=== PATIENT | female | born 1970 | race Caucasian/White ===

== ENCOUNTER 2023-09-06 16:13 | Inpatient (IN) | payer MEDICAID ==
[~2023-09-06] VITALS: Ht 157.5 cm; Wt 68.0 kg
[2023-09-06 16:28] VITALS: BP_SYST 142; PULSE 98; RESP 22; TEMP 98.3; O2SAT 98
[2023-09-06] MEDS ORDERED: ASPIRIN 81 MG TAB.CHEW PO ONE (17:15)
[2023-09-06 17:37] LABS: BASOPHILS % (AUTO) 0.3 % (0.0-2.0); EOSINOPHILS # (AUTO) 0.3 K/uL (0.0-0.4); EOSINOPHILS % (AUTO) 2.8 % (0.0-4.0); HEMATOCRIT 44.2 % (36-48); HEMOGLOBIN 14.7 g/dL (12.0-16.0); LYMPHOCYTES # (AUTO) 2.1 K/uL (1.0-5.5); LYMPHOCYTES % (AUTO) 23.3 % (20.5-51.5); MEAN CORPUSCULAR HEMOGLOBIN 30 pg (27-31); MEAN CORPUSCULAR HGB CONC 33 % (32-36); MEAN CORPUSCULAR VOLUME 90 fL (79.0-98.0); MONOCYTES # (AUTO) 0.6 K/uL (0.0-1.0); MONOCYTES % (AUTO) 6.3 % (1.7-9.3); NEUTROPHILS # (AUTO) 6.2 K/uL (1.8-7.7); NEUTROPHILS % (AUTO) 67.3 % (40.0-70.0); PLATELET COUNT (AUTO) 215 K/uL (130-430); RED BLOOD CELL COUNT(AUTO) 4.92 MIL/uL (4.2-6.2); RED CELL DISTRIBUTION WIDTH 14.6 % (9.0-15.0); WHITE BLOOD COUNT (AUTO) 9.2 K/uL (4.8-10.8)
[2023-09-06 17:48] LABS: ANION GAP 4 (5-15); CALCIUM 9.9 mg/dL (8.4-11.0); CARBON DIOXIDE 31 mmol/L (23-29); CHLORIDE 97 mmol/L (98-107); CREATININE 0.55 mg/dL (0.55-1.30); GFR AFRICAN AMERICAN 150 mL/min (>90); GFR NON AFRICAN-AMERICAN 124 mL/min (>90); GLUCOSE 94 mg/dL (74-106); POTASSIUM 3.9 mmol/L (3.5-5.1); SODIUM SERUM 132 mmol/L (136-145); UREA NITROGEN, BLOOD 11 mg/dL (8-21)
[2023-09-06 17:55] LABS: LIPASE 19 U/L (16-77)
[2023-09-06] MEDS ORDERED: KETOROLAC TROMETHAMINE 30 MG VIAL IVP ONE (18:15)
[2023-09-06] MEDS ORDERED: DIPHENHYDRAMINE INJ 50 MG/ML VIAL IVP ONE (18:15)
[2023-09-06] MEDS ORDERED: ACETAMINOPHEN 325 MG TABLET GT PRN (23:00)
[2023-09-06] MEDS ORDERED: HYDROcodone/ACETAMIN 10-325 MG TAB GT PRN (23:00)
[2023-09-06] MEDS ORDERED: NALOXONE HCL 0.4 MG/ML AMP (NARCAN) IVP PRN ×2 (23:00)
[2023-09-06] MEDS ORDERED: ONDANSETRON HCL 4 MG/2 ML VIAL IVP PRN (23:00)
[2023-09-07] MEDS: D5/0.45 NS 1,000 ML IV SCH ×2 (00:55→07:54)
[2023-09-07] MEDS: LORazepam 2 MG/ML VIAL IVP PRN ×2 (01:09→23:57)
[2023-09-07] MEDS ORDERED: ACET325T53 GT (04:37)
[2023-09-07] MEDS ORDERED: ACET325T GT (04:37)
[2023-09-07] MEDS ORDERED: ASCO500T20 GT (04:37)
[2023-09-07] MEDS ORDERED: ALBU2.5V7 INH (04:37)
[2023-09-07] MEDS ORDERED: ASA81 PO (04:40)
[2023-09-07] MEDS ORDERED: DOCU-144 GT (04:40)
[2023-09-07] MEDS ORDERED: GABA-534 GT (05:09)
[2023-09-07] MEDS ORDERED: LEVE500S9 GT (05:09)
[2023-09-07] MEDS ORDERED: ESCI-6 GT (05:09)
[2023-09-07] MEDS ORDERED: MELA1TAB24 GT (05:42)
[2023-09-07] MEDS ORDERED: FLEETMO RC (05:42)
[2023-09-07] MEDS ORDERED: MOM GT (05:42)
[2023-09-07] MEDS ORDERED: PROTEIN LIQUID GT (05:42)
[2023-09-07] MEDS ORDERED: DOXE10CA2 GT (05:42)
[2023-09-07] MEDS ORDERED: MULT-1089 GT (05:42)
[2023-09-07] MEDS ORDERED: BISA10SU61 RC (05:42)
[2023-09-07] MEDS ORDERED: MONT-40 GT (05:42)
[2023-09-07] MEDS ORDERED: ZYRTEC GT (05:44)
[2023-09-07] MEDS ORDERED: TRAM50TA2 GT (05:44)
[2023-09-07] MEDS ORDERED: TIZA2CAP7 GT (05:44)
[2023-09-07 08:01] LABS: BASOPHILS % (AUTO) 0.3 % (0.0-2.0); EOSINOPHILS # (AUTO) 0.2 K/uL (0.0-0.4); EOSINOPHILS % (AUTO) 3.7 % (0.0-4.0); HEMATOCRIT 41.9 % (36-48); HEMOGLOBIN 13.7 g/dL (12.0-16.0); LYMPHOCYTES # (AUTO) 2.2 K/uL (1.0-5.5); LYMPHOCYTES % (AUTO) 33.1 % (20.5-51.5); MEAN CORPUSCULAR HEMOGLOBIN 29 pg (27-31); MEAN CORPUSCULAR HGB CONC 33 % (32-36); MEAN CORPUSCULAR VOLUME 90 fL (79.0-98.0); MONOCYTES # (AUTO) 0.4 K/uL (0.0-1.0); MONOCYTES % (AUTO) 6.5 % (1.7-9.3); NEUTROPHILS # (AUTO) 3.7 K/uL (1.8-7.7); NEUTROPHILS % (AUTO) 56.4 % (40.0-70.0); PLATELET COUNT (AUTO) 203 K/uL (130-430); RED BLOOD CELL COUNT(AUTO) 4.66 MIL/uL (4.2-6.2); RED CELL DISTRIBUTION WIDTH 14.8 % (9.0-15.0)
[2023-09-07 08:08] LABS: ALBUMIN 3.7 g/dL (3.4-4.8); CALCIUM 9.2 mg/dL (8.4-11.0); CREATININE 0.6 mg/dL (0.55-1.30); PHOSPHORUS 4.2 mg/dL (2.7-4.5); POTASSIUM 3.6 mmol/L (3.5-5.1); TOTAL BILIRUBIN 0.7 mg/dL (0.0-1.0)
[2023-09-07 08:10] LABS: WHITE BLOOD COUNT (AUTO) 6.6 K/uL (4.8-10.8)
[2023-09-07] MEDS ORDERED: HYDROcodone/ACETAMIN 5-325 MG TAB (NORCO/ VICODIN) GT PRN (10:00)
[2023-09-07] MEDS: HYDROcodone/ACETAMIN 5-325 MG TAB (NORCO/ VICODIN) GT PRN (10:50)
[2023-09-07] MEDS ORDERED: LORazepam 2 MG/ML VIAL ONE (15:11)
[2023-09-07] MEDS ORDERED: ACETAMINOPHEN 325 MG TABLET GT PRN (15:15)
[2023-09-07 22:00] VITALS: BP_SYST 169; PULSE 122; RESP 20; TEMP 99.2; O2SAT 97
[2023-09-07] MEDS ORDERED: METOPROLOL TARTRATE 5 MG/5 ML VIAL IVP PRN (23:15)
[2023-09-08 00:30] VITALS: BP_SYST 148; PULSE 114; RESP 20; O2SAT 96
[2023-09-08] MEDS: NACL 0.9% 1,000 ML IV SCH ×3 (02:33→21:13)
[2023-09-08 06:31] LABS: BASOPHILS % (AUTO) 0.3 % (0.0-2.0); EOSINOPHILS # (AUTO) 0.1 K/uL (0.0-0.4); EOSINOPHILS % (AUTO) 1.8 % (0.0-4.0); HEMATOCRIT 40.7 % (36-48); HEMOGLOBIN 13.4 g/dL (12.0-16.0); LYMPHOCYTES # (AUTO) 1.5 K/uL (1.0-5.5); LYMPHOCYTES % (AUTO) 20.8 % (20.5-51.5); MEAN CORPUSCULAR HEMOGLOBIN 30 pg (27-31); MEAN CORPUSCULAR HGB CONC 33 % (32-36); MEAN CORPUSCULAR VOLUME 90 fL (79.0-98.0); MONOCYTES # (AUTO) 0.4 K/uL (0.0-1.0); MONOCYTES % (AUTO) 5.9 % (1.7-9.3); NEUTROPHILS # (AUTO) 5.3 K/uL (1.8-7.7); NEUTROPHILS % (AUTO) 71.2 % (40.0-70.0); PLATELET COUNT (AUTO) 198 K/uL (130-430); RED BLOOD CELL COUNT(AUTO) 4.52 MIL/uL (4.2-6.2); RED CELL DISTRIBUTION WIDTH 14.3 % (9.0-15.0); WHITE BLOOD COUNT (AUTO) 7.4 K/uL (4.8-10.8)
[2023-09-08 06:42] LABS: CALCIUM 8.9 mg/dL (8.4-11.0); CREATININE 0.44 mg/dL (0.55-1.30); POTASSIUM 3.1 mmol/L (3.5-5.1)
[2023-09-08] MEDS ORDERED: POTASSIUM CHLORIDE 20 MEQ/PKT PACKET PO ONE ×2 (09:45→12:30)
[2023-09-08 11:13] VITALS: BP_SYST 136; PULSE 91; RESP 16; TEMP 97; O2SAT 93
[2023-09-08] MEDS: HYDROcodone/ACETAMIN 5-325 MG TAB (NORCO/ VICODIN) GT PRN ×2 (13:15→21:12)
[2023-09-08 15:06] VITALS: BP_SYST 148; PULSE 93; RESP 16; TEMP 98.1; O2SAT 96
[2023-09-08 15:50] VITALS: BP_SYST 135; PULSE 90; RESP 20; TEMP 98; O2SAT 98
[2023-09-08 16:00] VITALS: BP_SYST 138; PULSE 89; RESP 20; TEMP 98; O2SAT 98
[2023-09-08 20:00] VITALS: BP_SYST 160; PULSE 99; RESP 16; TEMP 98.4; O2SAT 98
[2023-09-09] VITALS: BP_SYST 132; PULSE 89; RESP 20; TEMP 97.2; O2SAT 98
[2023-09-09] MEDS: LORazepam 2 MG/ML VIAL IVP PRN (01:14)
[2023-09-09] MEDS: NACL 0.9% 1,000 ML IV SCH (06:26)
[2023-09-09 08:40] VITALS: BP_SYST 149; PULSE 98; RESP 18; TEMP 98.2; O2SAT 96
[2023-09-09 10:42] VITALS: O2SAT 96
[2023-09-09] MEDS ORDERED: POTASSIUM CHLORIDE 20 MEQ TABLET.ER GT ONE (11:30)
[2023-09-09 12:05] VITALS: BP_SYST 95; PULSE 93; RESP 16; TEMP 98.2; O2SAT 82
== END 2023-09-09 13:45 | DRG 426 ==
LOC: SED 16:13 → STU 19:33 → SMU 09-08 18:42
PROVIDERS: ADMIT Preventive Medicine Preventive Medicine/Occupational Environmental Medicine; ATTEND Preventive Medicine Preventive Medicine/Occupational Environmental Medicine
DX: E87.1 Hypo-osmolality and hyponatremia (principal); I69.354 Hemiplegia and hemiparesis following cerebral infarction affecting left non-dominant side; R07.89 Other chest pain; K94.23 Gastrostomy malfunction; F41.9 Anxiety disorder, unspecified; F32.A Depression, unspecified; E87.5 Hyperkalemia; N31.9 Neuromuscular dysfunction of bladder, unspecified; R13.10 Dysphagia, unspecified; Z87.820 Personal history of traumatic brain injury; Z79.82 Long term (current) use of aspirin; Z79.899 Other long term (current) drug therapy
CPT/HCPCS: 36415; 71045; 80048; 80053; 82962; 83690; 83735; 83880; 84100; 84484; 85025; 87081; 93005; 93306; 96374; 96375; 99285; G0378; J1200; J1885; J2060